=== PATIENT | female | born 1995 | race Caucasian/White ===

== ENCOUNTER 2022-06-03 15:52 | Emergency (ER) | payer OTHER ==
[2022-06-03] MEDS ORDERED: TORAdol 30 mg Injection IM ONE (16:20)
[2022-06-03] MEDS ORDERED: BENADRYL 50 MG/ML IM ONE (16:20)
[2022-06-03] MEDS ORDERED: Reglan 10 MG/2 ML IM ONE (16:20)
[2022-06-03] MEDS ORDERED: TYLENOL 325 MG PO ONE (16:20)
[2022-06-03] MEDS ORDERED: TYLENOL 325 MG ONE (16:24)
[2022-06-03] MEDS ORDERED: BENADRYL 50 MG/ML ONE (16:24)
[2022-06-03] MEDS ORDERED: TORAdol 30 mg Injection ONE (16:24)
[2022-06-03] MEDS ORDERED: Reglan 10 MG/2 ML ONE (16:25)
--- NOTE | 2022-06-03 16:25 | ERPHSYRPT ---
- History of Present Illness Time Seen by Provider: 06/03/22 15:59 Source: patient Exam Limitations: no limitations Patient Subjective Stated Complaint: Headache Triage Nursing Assessment: Patient ambulated back to ED and transferred self to bed. Patient A+O x 3. Patient's skin pink, warm and dry. Patient complains of headache for 3 days. Patient complains of N/V. Patient states she has a hx of migraines and is light sensitive. Physician History: 27-year-old female with history of migraine poorly controlled usually associated with menstrual cycle presented in the ER with 3 days history of generalized headache more on the right side sharp pressure sensation with light sensitivity, associated with nausea and one episode of vomiting. She has been taking [id number] medications for pain but no significant relief. Denies any focal numbness tingling or weakness. No difficulty speech. Headache is similar to previous but usually gets better after a day or so but not improving this time. Patient started her cycle yesterday. Timing/Duration: day(s) (3), constant, gradual onset, worse Quality: pressure, sharpness Head Pain Location: global Severity of Pain-Max: severe Severity of Pain-Current: severe Recent Head Trauma: frequent headaches Modifying Factors: Worsens With: exposure to light Associated Symptoms: nausea/vomiting, sensitive to light, No confusion, No dizziness, No fatigue, No facial pain, No fever/chills, No flushing, No light- headedness, No loss of consciousness, No nasal congestion, No nasal drainage, No neck pain, No numbness in legs/feet, No sweating, No scotoma, No seizures, No sinus infection, No speech problems, No stiff neck, No trouble walking, No vision changes, No visual disturbance Previous symptoms: same symptoms as today Allergies/Adverse Reactions: No Known Drug Allergies Allergy (Unverified 06/03/22 16:06) Home Medications: Metformin HCl 500 mg [Glucophage 500 MG] 1 tab PO DAILY 06/03/22 [History] Sertraline HCl [Zoloft] 1 tab PO DAILY 06/03/22 [History] Hx Influenza Vaccination/Date Given: No Hx Pneumococcal Vaccination/Date Given: No Immunizations Up to Date: Yes Travel Risk - International Travel Have you traveled outside of the country in past 3 weeks: No - Coronavirus Screening Are you exhibiting any of the following symptoms?: No Close contact with a COVID-19 positive Pt in past 14-21 Days: No - Vaccine Status Have you recieved a Covid-19 vaccination: No - Review of Systems Constitutional: No Symptoms Eyes: No Symptoms Ears, Nose, & Throat: No Symptoms Respiratory: No Symptoms Cardiac: No Symptoms Abdominal/Gastrointestinal: Nausea, Vomiting Genitourinary Symptoms: No Symptoms Musculoskeletal: No Symptoms Skin: No Symptoms Neurological: Headache Psychological: Anxiety, Depression Endocrine: No Symptoms Hematologic/Lymphatic: No Symptoms Immunological/Allergic: No Symptoms - Past Medical History Pertinent Past Medical History: Yes Neurological History: Migraines Cardiac History: No Pertinent History Respiratory History: No Pertinent History Endocrine Medical History: No Pertinent History Musculoskeletal History: No Pertinent History GI Medical History: No Pertinent History History: No Pertinent History Psycho-Social History: Anxiety, Depression Female Reproductive Disorders: No Pertinent History Other Medical History: PCOS - Past Surgical History Past Surgical History: Yes Neuro Surgical History: No Pertinent History Cardiac: No Pertinent History Respiratory: No Pertinent History Gastrointestinal: No Pertinent History Genitourinary: No Pertinent History Musculoskeletal: No Pertinent History Female Surgical History: No Pertinent History - Social History Smoking Status: Never smoker Exposure to second hand smoke: Yes Drug Use: none Patient Lives Alone: No - Female History Hx Last Menstrual Period: currently Hx Now: No - Nursing Vital Signs Nursing Vital Signs: Initial Vital Signs Temperature 97.2 F 06/03/22 16:07 Pulse Rate 69 06/03/22 16:07 Respiratory Rate 18 06/03/22 16:07 Blood Pressure 142/79 06/03/22 16:07 O2 Sat by Pulse Oximetry 98 06/03/22 16:07 Pain Scale Pain Intensity 6 - Physical Exam General Appearance: no apparent distress, alert Eye Exam: PERRL/EOMI, eyes nml inspection Ears, Nose, Throat Exam: normal ENT inspection, TMs normal, pharynx normal, moist mucous membranes Neck Exam: normal inspection, non-tender, supple, carotid bruit, No meningismus Respiratory Exam: normal breath sounds, lungs clear Cardiovascular Exam: regular rate/rhythm, normal heart sounds Gastrointestinal/Abdominal Exam: soft, normal bowel sounds, No tenderness Back Exam: normal inspection Extremity Exam: normal inspection, normal range of motion Mental Status Exam: alert, oriented 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, 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 Exam: normal hearing, normal speech, PERRL Coordination/Gait Exam: normal finger to nose, normal gait, normal cerebellar function, negative Romberg's sign Motor/Sensory Exam: no motor deficit, no sensory deficit, no pronator drift, negative Babinski's sign DTR Exam: bicep (R): 2+, bicep (L): 2+, knee (R): 2+, knee (L): 2+ Skin Exam: normal color SpO2 Interpretation: normal SpO2: 98 O2 Delivery: Room Air Ordered Tests: Medication Summary Discontinued Medications Generic Name Dose Route Start Last Admin Trade Name Neil PRN Reason Stop Dose Admin Acetaminophen 975 mg 06/03/22 16:20 06/03/22 16:27 Acetaminophen 325 Mg Tablet PO 06/03/22 16:21 975 mg STAT ONE Administration Acetaminophen Confirm 06/03/22 16:24 Acetaminophen 325 Mg Tablet Administered 06/03/22 16:25 Dose 975 mg .ROUTE .STK-MED ONE Diphenhydramine HCl 50 mg 06/03/22 16:20 06/03/22 16:30 Diphenhydramine Hcl 50 Mg/Ml Vial IM 06/03/22 16:21 50 mg STAT ONE Administration Diphenhydramine HCl Confirm 06/03/22 16:24 Diphenhydramine Hcl 50 Mg/Ml Vial Administered 06/03/22 16:25 Dose 50 mg .ROUTE .STK-MED ONE Ketorolac Tromethamine 30 mg 06/03/22 16:20 06/03/22 16:29 Ketorolac Tromethamine 30 Mg/Ml Inj IM 06/03/22 16:21 30 mg STAT ONE Administration Ketorolac Tromethamine Confirm 06/03/22 16:24 Ketorolac Tromethamine 30 Mg/Ml Inj Administered 06/03/22 16:25 Dose 30 mg .ROUTE .STK-MED ONE Metoclopramide HCl 10 mg 06/03/22 16:20 06/03/22 16:28 Metoclopramide Hcl 10 Mg/2 Ml Vial IM 06/03/22 16:21 10 mg STAT ONE Administration Metoclopramide HCl Confirm 06/03/22 16:25 Metoclopramide Hcl 10 Mg/2 Ml Vial Administered 06/03/22 16:26 Dose 10 mg .ROUTE .STK-MED ONE - Progress Progress: improved, re-examined Air Movement: good Progress Note: 06/03/22 17:44 She is given migraine cocktail, feeling much better on reevaluation and headache is almost completely resolved. He has minimal pressure on reevaluation. Nonfocal neuro exam on repeated evaluation as well. Headache is similar to previous and does not think this is the worst headache of her life. I do not think she needs imaging or any other work-up and is stable for discharge. Recommended outpatient follow-up to be placed on some prophylactic medication. We will give her Maxalt. Discussed signs symptoms of worsening needing return to ER which she seems understanding. Blood Culture(s) Obtained: No Antibiotics given: No Counseled pt/family regarding: diagnosis, need for follow-up - Departure Departure Disposition: Home Clinical Impression: Migraine Qualifiers: Migraine type: menstrual Status migrainosus presence: without status migrainosus Intractability: not intractable Qualified Code(s): G43.829 - Menstrual migraine, not intractable, without status migrainosus Condition: Stable Critical Care Time: No Referrals: BUSTER BARRAZA FNP [NON-STAFF PHY W/O PRIVILEGES] - Follow Up with PCP/3 days Instructions: Migraines (DC) Additional Instructions: Take Tylenol/ibuprofen as needed Follow-up with primary care for reevaluation. Take Maxalt as recommended. Return to ER for intractable headache, numbness tingling weakness, visual disturbance etc. Prescriptions: Rizatriptan Benzoate [Maxalt] 5 mg PO Q2H 30 Days #7 tablet MDD 20
[2022-06-03 17:15] VITALS: BP 136/75; PULSE 64
[2022-06-03 17:29] VITALS: O2SAT 98
== END 2022-06-03 17:59 | disposition home or self-care (01) ==
LOC: ED 15:52
DX: G43.829 Menstrual migraine, not intractable, without status migrainosus (principal); H53.143 Visual discomfort, bilateral; R11.2 Nausea with vomiting, unspecified; Z79.84 Long term (current) use of oral hypoglycemic drugs; Z79.899 Other long term (current) drug therapy; Z28.310 Unvaccinated for COVID-19
CPT/HCPCS: 96372; 99283; J1200; J1885; A9270-GY